=== PATIENT | female | born 1985 | race Two or more races ===

== ENCOUNTER 2024-10-19 21:51 | Emergency (ER) | payer OTHER ==
[~2024-10-19] VITALS: Ht 175.3 cm; Wt 61.2 kg
[2024-10-19 22:18] LABS: *BILIRUBIN,URIN NEGATIVE (NEGATIVE); *BLOOD, URINE NEGATIVE (NEGATIVE); *CLARITY,URINE CLEAR (CLEAR); *COLOR,URINE YELLOW (YELLOW); *KETONES,URINE NEGATIVE (NEGATIVE); *PROTEIN,URINE NEGATIVE (NEGATIVE); *UROBILINOGEN,URINE 0.2 E.U./dl (NORMAL); LEUKOCYTE ESTERASE ,URINE NEGATIVE (NEGATIVE); NITRITE, URINE NEGATIVE (NEGATIVE); PH,URINE 8.5 (5.0-8.0); UGLUCOSE NEGATIVE (NEGATIVE)
[2024-10-19] MEDS ORDERED: ACETAMINOPHEN 500 MG TABLET ONE (22:18)
[2024-10-19 22:19] LABS: BASOPHILS % (AUTO) 0.9 % (0.0-2.0); EOSINOPHILS % (AUTO) 0.5 % (0.0-7.0); HEMATOCRIT 28.2 % (31.2-41.9); HEMOGLOBIN 8.9 g/dL (10.9-14.3); LYMPHOCYTES # (AUTO) 0.4 K/uL (0.8-4.8); LYMPHOCYTES % (AUTO) 9.8 % (20.5-51.5); MEAN CORPUSCULAR HEMOGLOBIN 22.8 uug (24.7-32.8); MEAN CORPUSCULAR HGB CONC 31 g/dL (32.3-35.6); MEAN CORPUSCULAR VOLUME 72.4 fL (75.5-95.3); MONOCYTES # (AUTO) 0.4 K/uL (0.1-1.30); MONOCYTES % (AUTO) 10.2 % (0.0-11.0); NEUTROPHILS # (AUTO) 2.9 K/uL (1.8-8.9); NEUTROPHILS % (AUTO) 78.6 % (38.5-71.5); PLATELET COUNT (AUTO) 387 K/uL (179-408); RED BLOOD CELL COUNT(AUTO) 3.89 MIL/uL (3.63-4.92); RED CELL DISTRIBUTION WIDTH 18.2 % (12.3-17.7); WHITE BLOOD COUNT (AUTO) 3.6 K/uL (3.8-11.8)
[2024-10-19] MEDS: ACETAMINOPHEN 500 MG TABLET PO ONE (22:20)
[2024-10-19 22:21] LABS: *URINE HCG, QUAL NEGATIVE (NEGATIVE)
[2024-10-19] MEDS ORDERED: ONDANSETRON 4 MG/2 ML VIAL ONE (22:22)
[2024-10-19] MEDS ORDERED: MORPHINE SULFATE 4 MG/1 ML DISP.SYRIN ONE (22:23)
[2024-10-19 22:25] LABS: CALCIUM 8.8 mg/dL (8.5-10.1); CREATININE 0.9 mg/dL (0.6-1.3); DIFFERENTIAL COMMENT 1; POTASSIUM 3.7 mmol/L (3.5-5.1)
[2024-10-19] MEDS: ONDANSETRON 4 MG/2 ML VIAL IV ONE (22:27)
[2024-10-19] MEDS: MORPHINE SULFATE 4 MG/1 ML DISP.SYRIN IV ONE (22:27)
[2024-10-19 22:30] LABS: ALBUMIN 2.9 g/dL (3.4-5.0); BILIRUBIN,DIRECT 0.1 mg/dL (0.0-0.2); BILIRUBIN,TOTAL 0.2 mg/dL (0.2-1.0); TOTAL PROTEIN, SERUM 6.9 g/dL (6.4-8.2)
[2024-10-19] MEDS ORDERED: AZITHROMYCIN 500MG/ D5W 250ML IVPB **ER PYXIS ONLY IV ONE (22:53)
[2024-10-19] MEDS: AZITHROMYCIN IV 500 MG in IV DEXTROSE 5% 250 ML IV ONE (22:57)
[2024-10-19] MEDS ORDERED: HYDR-4209 PO (23:32)
[2024-10-19] MEDS ORDERED: AZIT250T13 PO (23:32)
[2024-10-19] MEDS ORDERED: ONDA4TAB11 PO (23:32)
[2024-10-19 23:39] VITALS: BP 108/78; TEMP 98.8; O2SAT 98
== END 2024-10-19 23:42 | disposition home or self-care (01) ==
LOC: ER 22:04
DX: R10.9 Unspecified abdominal pain (principal); R11.0 Nausea; J02.9 Acute pharyngitis, unspecified; J40 Bronchitis, not specified as acute or chronic; Z87.19 Personal history of other diseases of the digestive system; Z20.822 Contact with and (suspected) exposure to COVID-19
CPT/HCPCS: 99284; 96365; 96375; 71045; 87426; 87804 ×2; 80076; 80048; 81003; 84703; 83690; 85025; 85379; 87086; 36415; J0456; J2405; J2270; A4606; A4663; A9150